=== PATIENT | female | born 1960 | race African-American/Black ===

== ENCOUNTER 2016-05-24 15:59 | Emergency (ER) | payer OTHER ==
[~2016-05-24 15:59] MED LIST: INSULIN; PERCOCET5/325 PO
== END 2016-05-24 16:01 | disposition home or self-care (01) ==
LOC: SED 15:59
DX: M54.12 Radiculopathy, cervical region (principal); Z98.51 Tubal ligation status; Z79.891 Long term (current) use of opiate analgesic
CPT/HCPCS: 96372; 99283; J1170; J2550